=== PATIENT | female | born 1970 | race Caucasian/White ===

== ENCOUNTER 2022-10-04 13:23 | Inpatient (IN) | payer OTHER, BC ==
[2022-10-04 14:39] VITALS: BMI 27.9
[2022-10-04] MEDS ORDERED: NALOXONE HCL 0.4 MG/ML VIAL IM PRN (15:36)
[2022-10-04] MEDS ORDERED: MAG HYDROX/AL HYDROX/SIMETH 30 ML UNIT-DOSE CUP PO PRN (15:36)
[2022-10-04] MEDS ORDERED: POLYETHYLENE GLYCOL (HEALTHYLAX) 3350 17 GM PACKET PO PRN (15:36)
[2022-10-04] MEDS ORDERED: P-EPHED 60MG/TRIPROLIDI 2.5MG TABLET PO PRN (15:36)
[2022-10-04] MEDS ORDERED: DICYCLOMINE HCL 10 MG CAPSULE PO PRN (15:36)
[2022-10-04] MEDS ORDERED: ACETAMINOPHEN 325 MG TABLET (FP) PO PRN ×2 (15:36)
[2022-10-04] MEDS ORDERED: LOPERAMIDE HCL 2 MG CAPSULE PO PRN (15:36)
[2022-10-04] MEDS ORDERED: MAGNESIUM HYDROX 2400MG/30ML ORAL SUSPENSION 30 ML CUP PO PRN (15:36)
[2022-10-04] MEDS ORDERED: NALOXONE HCL (KLOXXADO) 8 MG SPRAY NS PRN (15:36)
[2022-10-04] MEDS ORDERED: guaiFENesin 200 MG/10 ML 10 ML UNIT-DOSE CUPS PO PRN (15:36)
[2022-10-04] MEDS ORDERED: BENZOCAINE/MENTHOL (CHLORASEPTIC ) LOZENGE MM PRN (15:36)
[2022-10-04] MEDS ORDERED: methaDONE HCL 10 MG TABLET (FOR DETOX USE ONLY) PO ONE (15:38)
[2022-10-04] MEDS ORDERED: methaDONE HCL 10 MG TABLET (FOR DETOX USE ONLY) ONE (15:49)
[2022-10-04] MEDS ORDERED: diazePAM 5 MG TABLET ONE (16:22)
[2022-10-04] MEDS ORDERED: cloNIDine HCL 0.1 MG TABLET ONE (16:22)
[2022-10-04] MEDS: cloNIDine HCL 0.1 MG TABLET PO PRN (16:23)
[2022-10-04] MEDS: diazePAM 5 MG TABLET PO SCH ×2 (16:29→22:17)
[2022-10-04] MEDS ORDERED: MELATONIN 5 MG TABLETS PO SCH (22:00)
[2022-10-04] MEDS: THIAMINE HCL 100 MG TABLET (FP) PO SCH (22:17)
[2022-10-04] MEDS: METHOCARBAMOL 500 MG TABLET PO PRN (22:17)
[2022-10-05] MEDS: diazePAM 5 MG TABLET PO SCH ×4 (05:49→22:34)
[2022-10-05] MEDS: METHOCARBAMOL 500 MG TABLET PO PRN ×2 (10:18→17:27)
[2022-10-05] MEDS: cloNIDine HCL 0.1 MG TABLET PO PRN (10:18)
[2022-10-05] MEDS: PRENATAL VITAMINS W/ FOLIC ACID TABLET (FP) PO SCH (10:20)
[2022-10-05] MEDS: diazePAM 5 MG TABLET PO PRN (15:00)
[2022-10-05 15:04] LABS: HEMATOCRIT 37.8 % (32.4-45.2); HEMOGLOBIN 11.6 GM/dL (10.7-15.3); MCH 23.5 pg (25.7-33.7); MCHC 30.7 g/dl (32.0-36.0); MEAN CELL VOLUME 76.8 fl (80-96); MEAN PLT VOLUME 8.4 fl (7.5-11.1); PLATELET COUNT 367 10^3/uL (134-434); RBC 4.92 M/mm3 (3.60-5.2); RDW 18.6 % (11.6-15.6)
[2022-10-05 15:05] LABS: ALBUMIN 3.8 g/dl (3.4-5.0); BLOOD UREA NITROGEN 15.7 mg/dL (7-18); CALCIUM 9.8 mg/dL (8.5-10.1)
[2022-10-05 15:09] LABS: CREATININE 0.7 mg/dL (0.55-1.3)
[2022-10-05 15:10] LABS: BILIRUBIN,TOTAL 0.6 mg/dL (0.2-1); TOT PROT 7.5 g/dl (6.4-8.2)
[2022-10-05] MEDS: hydrOXYzine PAMOATE 25 MG CAPSULE (FP) PO PRN (17:27)
[2022-10-05] MEDS: THIAMINE HCL 100 MG TABLET (FP) PO SCH (22:32)
[2022-10-05] MEDS: SUVOREXANT 10 MG TABLET PO PRN (22:36)
[2022-10-06] MEDS: diazePAM 5 MG TABLET PO PRN ×3 (02:00→17:02)
[2022-10-06] MEDS: diazePAM 5 MG TABLET PO SCH ×3 (05:14→22:10)
[2022-10-06] MEDS: hydrOXYzine PAMOATE 25 MG CAPSULE (FP) PO PRN ×2 (05:15→13:49)
[2022-10-06] MEDS: METHOCARBAMOL 500 MG TABLET PO PRN ×3 (05:15→22:10)
[2022-10-06] MEDS ORDERED: methaDONE HCL 10 MG TABLET (FOR DETOX USE ONLY) PO ONE (10:00)
[2022-10-06] MEDS: PRENATAL VITAMINS W/ FOLIC ACID TABLET (FP) PO SCH (10:04)
[2022-10-06] MEDS: cloNIDine HCL 0.1 MG TABLET PO PRN (13:49)
[2022-10-06] MEDS: THIAMINE HCL 100 MG TABLET (FP) PO SCH (22:10)
[2022-10-06] MEDS: SUVOREXANT 10 MG TABLET PO PRN (22:10)
[2022-10-07] MEDS: diazePAM 5 MG TABLET PO PRN ×3 (00:49→13:00)
[2022-10-07] MEDS: diazePAM 5 MG TABLET PO SCH ×2 (05:30→17:01)
[2022-10-07] MEDS: METHOCARBAMOL 500 MG TABLET PO PRN ×2 (08:46→17:00)
[2022-10-07] MEDS: PRENATAL VITAMINS W/ FOLIC ACID TABLET (FP) PO SCH (09:43)
[2022-10-07] MEDS: hydrOXYzine PAMOATE 25 MG CAPSULE (FP) PO PRN (20:45)
[2022-10-07] MEDS: traZODone HCL 100 MG TABLET (FP) PO SCH (22:13)
[2022-10-07] MEDS: THIAMINE HCL 100 MG TABLET (FP) PO SCH (22:13)
[2022-10-08] MEDS: METHOCARBAMOL 500 MG TABLET PO PRN ×3 (03:50→23:36)
[2022-10-08] MEDS ORDERED: diazePAM 5 MG TABLET PO ONE ×2 (06:00→14:38)
[2022-10-08] MEDS: hydrOXYzine PAMOATE 25 MG CAPSULE (FP) PO PRN ×3 (07:30→22:08)
[2022-10-08] MEDS ORDERED: methaDONE HCL 10 MG TABLET (FOR DETOX USE ONLY) PO ONE (10:00)
[2022-10-08] MEDS: PRENATAL VITAMINS W/ FOLIC ACID TABLET (FP) PO SCH (10:04)
[2022-10-08] MEDS: THIAMINE HCL 100 MG TABLET (FP) PO SCH (22:08)
[2022-10-08] MEDS: traZODone HCL 100 MG TABLET (FP) PO SCH (22:08)
[2022-10-09] MEDS: ONDANSETRON *ODT* 4 MG TABLET SL PRN ×2 (07:37→17:28)
[2022-10-09] MEDS: TRIMETHOBENZAMIDE HCL 200MG/2ML INJ IM PRN ×2 (09:14→22:32)
[2022-10-09] MEDS: hydrOXYzine PAMOATE 25 MG CAPSULE (FP) PO PRN ×2 (10:31→17:28)
[2022-10-09] MEDS: PRENATAL VITAMINS W/ FOLIC ACID TABLET (FP) PO SCH (10:31)
[2022-10-09] MEDS: METHOCARBAMOL 500 MG TABLET PO PRN ×2 (10:31→17:29)
[2022-10-09] MEDS: traZODone HCL 100 MG TABLET (FP) PO SCH (22:31)
[2022-10-09] MEDS: THIAMINE HCL 100 MG TABLET (FP) PO SCH (22:31)
[2022-10-10] MEDS: ONDANSETRON *ODT* 4 MG TABLET SL PRN (06:11)
[2022-10-10] MEDS: TRIMETHOBENZAMIDE HCL 200MG/2ML INJ IM PRN (08:47)
[2022-10-10 09:48] VITALS: RESP 18
[2022-10-10] MEDS: PRENATAL VITAMINS W/ FOLIC ACID TABLET (FP) PO SCH (10:13)
[2022-10-10 17:21] VITALS: BP 125/64; PULSE 52; TEMP 97.1
== END 2022-10-10 16:40 | disposition other institution (70) | DRG 897 ==
LOC: YASAS 13:23 → Y6N 16:16
PROVIDERS: ADMIT Allergy & Immunology; ATTEND Surgery
PROC: HZ2ZZZZ Detoxification Services for Substance Abuse Treatment (ICD-10-PCS; principal; 2022-10-04)
DX: F11.23 Opioid dependence with withdrawal (principal); F13.20 Sedative, hypnotic or anxiolytic dependence, uncomplicated; F19.280 Other psychoactive substance dependence with psychoactive substance-induced anxiety disorder; F19.282 Other psychoactive substance dependence with psychoactive substance-induced sleep disorder; F12.20 Cannabis dependence, uncomplicated; F43.10 Post-traumatic stress disorder, unspecified; G54.6 Phantom limb syndrome with pain; Z62.810 Personal history of physical and sexual abuse in childhood; Z89.212 Acquired absence of left upper limb below elbow; Z89.021 Acquired absence of right finger(s); Z91.51 Personal history of suicidal behavior; Z86.2 Personal history of diseases of the blood and blood-forming organs and certain disorders involving the immune mechanism; Z86.19 Personal history of other infectious and parasitic diseases; Z88.8 Allergy status to other drugs, medicaments and biological substances
CPT/HCPCS: 36415; 80053; 81025; 82962; 85027; 86780; C9803-CS; Q0162; U0003; U0005

== ENCOUNTER 2022-10-04 17:33 | Emergency (ER) | payer OTHER, BC ==
[2022-10-04 18:04] VITALS: BP 95/51; PULSE 81; RESP 20; TEMP 97.6; BMI 29.2
== END 2022-10-04 19:45 | disposition home or self-care (01) ==
LOC: JER 17:33
DX: M79.89 Other specified soft tissue disorders (principal)
CPT/HCPCS: 93970-TC; 99283-25

== ENCOUNTER 2022-10-25 12:52 | Inpatient (IN) | payer OTHER ==
[2022-10-25] MEDS ORDERED: MAGNESIUM HYDROX 2400MG/30ML ORAL SUSPENSION 30 ML CUP PO PRN (15:02)
[2022-10-25] MEDS ORDERED: NICOTINE POLACRILEX 2 MG GUM BUC PRN (15:02)
[2022-10-25] MEDS ORDERED: ACETAMINOPHEN 325 MG TABLET (FP) PO PRN ×2 (15:02)
[2022-10-25] MEDS ORDERED: BISMUTH SUBSALICYLATE 524 MG/30 ML PO PRN (15:02)
[2022-10-25] MEDS ORDERED: MAG HYDROX/AL HYDROX/SIMETH 30 ML UNIT-DOSE CUP PO PRN (15:02)
[2022-10-25] MEDS ORDERED: NICOTINE 10 MG CARTRIDGE (INHALER) IH PRN (15:02)
[2022-10-25] MEDS ORDERED: DICYCLOMINE HCL 10 MG CAPSULE PO PRN (15:02)
[2022-10-25] MEDS ORDERED: diazePAM 5 MG TABLET PO PRN (15:02)
[2022-10-25] MEDS ORDERED: IBUPROFEN 600 MG TABLET (FP) PO PRN (15:02)
[2022-10-25] MEDS ORDERED: hydrOXYzine PAMOATE 25 MG CAPSULE (FP) PO PRN (15:02)
[2022-10-25] MEDS ORDERED: ONDANSETRON *ODT* 4 MG TABLET SL PRN (15:02)
[2022-10-25] MEDS ORDERED: methaDONE HCL 10 MG TABLET (FOR DETOX USE ONLY) PO ONE (15:02)
[2022-10-25] MEDS ORDERED: LOPERAMIDE HCL 2 MG CAPSULE PO PRN (15:02)
[2022-10-25] MEDS ORDERED: NALOXONE HCL (KLOXXADO) 8 MG SPRAY NS PRN (15:02)
[2022-10-25] MEDS ORDERED: IBUPROFEN 400 MG TABLET (FP) PO PRN (15:02)
[2022-10-25] MEDS ORDERED: POLYETHYLENE GLYCOL (HEALTHYLAX) 3350 17 GM PACKET PO PRN (15:02)
[2022-10-25] MEDS ORDERED: METHOCARBAMOL 500 MG TABLET PO PRN (15:02)
[2022-10-25] MEDS ORDERED: BENZOCAINE/MENTHOL (CHLORASEPTIC ) LOZENGE MM PRN (15:02)
[2022-10-25] MEDS ORDERED: cloNIDine HCL 0.1 MG TABLET PO PRN (15:02)
[2022-10-25] MEDS ORDERED: methaDONE HCL 10 MG TABLET (FOR DETOX USE ONLY) ONE (17:00)
[2022-10-25] MEDS ORDERED: diazePAM 5 MG TABLET ONE (17:00)
[2022-10-25] MEDS: diazePAM 5 MG TABLET PO SCH ×2 (17:19→22:06)
[2022-10-25 17:30] LABS: HEMATOCRIT 40.2 % (32.4-45.2); HEMOGLOBIN 12.4 GM/dL (10.7-15.3); MCHC 30.7 g/dl (32.0-36.0); MEAN CELL VOLUME 78.1 fl (80-96); MEAN PLT VOLUME 8.1 fl (7.5-11.1); PLATELET COUNT 256 10^3/uL (134-434); RBC 5.15 M/mm3 (3.60-5.2); RDW 20.2 % (11.6-15.6); WHITE BLOOD COUNT 5.8 K/mm3 (4.0-10.0)
[2022-10-25 17:39] LABS: ALBUMIN 3.6 g/dl (3.4-5.0); BLOOD UREA NITROGEN 8.6 mg/dL (7-18); CALCIUM 9.3 mg/dL (8.5-10.1)
[2022-10-25 17:43] LABS: CREATININE 0.8 mg/dL (0.55-1.3)
[2022-10-25 17:44] LABS: BILIRUBIN,TOTAL 0.4 mg/dL (0.2-1); TOT PROT 7.6 g/dl (6.4-8.2)
[2022-10-25] MEDS ORDERED: THIAMINE HCL 100 MG TABLET (FP) PO SCH (22:00)
[2022-10-25] MEDS ORDERED: MELATONIN 5 MG TABLETS PO SCH (22:00)
[2022-10-26] MEDS: diazePAM 5 MG TABLET PO SCH ×2 (05:30→10:11)
[2022-10-26] MEDS ORDERED: PRENATAL VITAMINS W/ FOLIC ACID TABLET (FP) PO SCH (10:00)
[2022-10-26 13:08] VITALS: BP 98/67; PULSE 99; RESP 18; TEMP 98.1
[2022-10-26] MEDS ORDERED: traZODone HCL 100 MG TABLET (FP) PO SCH (22:00)
[2022-10-27] MEDS ORDERED: diazePAM 5 MG TABLET PO SCH (06:00)
[2022-10-27] MEDS ORDERED: methaDONE HCL 10 MG TABLET (FOR DETOX USE ONLY) PO ONE (10:00)
[2022-10-28] MEDS ORDERED: diazePAM 5 MG TABLET PO SCH (06:00)
[2022-10-29] MEDS ORDERED: diazePAM 5 MG TABLET PO ONE (06:00)
[2022-10-29] MEDS ORDERED: methaDONE HCL 10 MG TABLET (FOR DETOX USE ONLY) PO ONE (10:00)
== END 2022-10-26 15:10 | disposition left against medical advice (07) | DRG 894 ==
LOC: YASAS 12:52 → Y6N 15:41
PROVIDERS: ADMIT Allergy & Immunology; ATTEND Surgery
PROC: HZ2ZZZZ Detoxification Services for Substance Abuse Treatment (ICD-10-PCS; principal; 2022-10-25)
DX: F11.23 Opioid dependence with withdrawal (principal); F19.280 Other psychoactive substance dependence with psychoactive substance-induced anxiety disorder; F19.282 Other psychoactive substance dependence with psychoactive substance-induced sleep disorder; F13.230 Sedative, hypnotic or anxiolytic dependence with withdrawal, uncomplicated; F32.9 Major depressive disorder, single episode, unspecified; F43.10 Post-traumatic stress disorder, unspecified; G54.7 Phantom limb syndrome without pain; Z87.828 Personal history of other (healed) physical injury and trauma; Z89.212 Acquired absence of left upper limb below elbow; Z89.021 Acquired absence of right finger(s); Z91.51 Personal history of suicidal behavior; Z91.410 Personal history of adult physical and sexual abuse; Z86.2 Personal history of diseases of the blood and blood-forming organs and certain disorders involving the immune mechanism; Z88.8 Allergy status to other drugs, medicaments and biological substances
CPT/HCPCS: 36415; 80053; 85027; 86780; C9803-CS; U0003; U0005

== ENCOUNTER 2023-06-13 18:01 | Inpatient (IN) | payer OTHER ==
[2023-06-13 20:01] VITALS: BMI 26.6
[2023-06-13] MEDS ORDERED: NALOXONE HCL (KLOXXADO) 8 MG SPRAY NS PRN (21:28)
[2023-06-13] MEDS ORDERED: guaiFENesin 600 MG TABLET.ER (FP) PO PRN (21:28)
[2023-06-13] MEDS ORDERED: BENZONATATE 200 MG CAPSULE PO PRN (21:28)
[2023-06-13] MEDS ORDERED: MAGNESIUM HYDROX 2400MG/30ML ORAL SUSPENSION 30 ML CUP PO PRN (21:28)
[2023-06-13] MEDS ORDERED: MAG HYDROX/AL HYDROX/SIMETH 30 ML UNIT-DOSE CUP PO PRN (21:28)
[2023-06-13] MEDS ORDERED: BENZOCAINE/MENTHOL (CHLORASEPTIC ) LOZENGE MM PRN (21:28)
[2023-06-13] MEDS ORDERED: ACETAMINOPHEN 325 MG TABLET (FP) PO PRN (21:28)
[2023-06-13] MEDS ORDERED: POLYETHYLENE GLYCOL (HEALTHYLAX) 3350 17 GM PACKET PO PRN (21:28)
[2023-06-13] MEDS ORDERED: BISMUTH SUBSALICYLATE 524 MG/30 ML PO PRN (21:28)
[2023-06-13] MEDS ORDERED: NALOXONE HCL 0.4 MG/ML VIAL IM PRN (21:28)
[2023-06-13] MEDS ORDERED: IBUPROFEN 400 MG TABLET (FP) PO PRN (21:28)
[2023-06-13] MEDS ORDERED: LOPERAMIDE HCL 2 MG CAPSULE PO PRN (21:28)
[2023-06-13] MEDS ORDERED: IBUPROFEN 600 MG TABLET (FP) PO PRN (21:28)
[2023-06-13] MEDS ORDERED: methaDONE HCL 10 MG TABLET (FOR DETOX USE ONLY) PO ONE (21:33)
[2023-06-14] MEDS: THIAMINE HCL 100 MG TABLET (FP) PO SCH ×2 (00:44→22:13)
[2023-06-14] MEDS: MELATONIN 5 MG TABLETS PO SCH ×2 (00:44→22:13)
[2023-06-14] MEDS: cloNIDine HCL 0.1 MG TABLET PO PRN ×2 (00:44→16:16)
[2023-06-14] MEDS: METHOCARBAMOL 500 MG TABLET PO PRN ×3 (00:44→22:13)
[2023-06-14] MEDS ORDERED: methaDONE HCL 40 MG DISPERSABLE TABLET PO ONE (00:52)
[2023-06-14] MEDS: diazePAM 5 MG TABLET PO SCH ×5 (01:04→23:15)
[2023-06-14] MEDS: diazePAM 5 MG TABLET PO PRN ×3 (01:20→19:50)
[2023-06-14] MEDS ORDERED: methaDONE HCL 10 MG TABLET (FOR DETOX USE ONLY) PO ONE (01:30)
[2023-06-14] MEDS: PRENATAL VITAMINS W/ FOLIC ACID TABLET (FP) PO SCH (10:06)
[2023-06-14] MEDS: ACETAMINOPHEN 325 MG TABLET (FP) PO PRN (15:41)
[2023-06-14] MEDS: traZODone HCL 50 MG TABLET (FP) PO SCH (22:13)
[2023-06-15] MEDS: METHOCARBAMOL 500 MG TABLET PO PRN (03:33)
[2023-06-15] MEDS: diazePAM 5 MG TABLET PO SCH ×3 (05:11→21:28)
[2023-06-15] MEDS: cloNIDine HCL 0.1 MG TABLET PO PRN ×2 (05:19→20:06)
[2023-06-15] MEDS: PRENATAL VITAMINS W/ FOLIC ACID TABLET (FP) PO SCH (09:53)
[2023-06-15] MEDS ORDERED: methaDONE HCL 10 MG TABLET (FOR DETOX USE ONLY) PO ONE (10:00)
[2023-06-15] MEDS: diazePAM 5 MG TABLET PO PRN (17:16)
[2023-06-15] MEDS: traZODone HCL 50 MG TABLET (FP) PO SCH (21:27)
[2023-06-15] MEDS: MELATONIN 5 MG TABLETS PO SCH (21:27)
[2023-06-15] MEDS: THIAMINE HCL 100 MG TABLET (FP) PO SCH (21:39)
[2023-06-16] MEDS: diazePAM 5 MG TABLET PO PRN ×2 (01:42→11:42)
[2023-06-16] MEDS: diazePAM 5 MG TABLET PO SCH ×2 (05:20→17:35)
[2023-06-16] MEDS: PRENATAL VITAMINS W/ FOLIC ACID TABLET (FP) PO SCH (10:08)
[2023-06-16] MEDS: METHOCARBAMOL 500 MG TABLET PO PRN (14:04)
[2023-06-16 15:20] LABS: POTASSIUM 4.2 mmol/L (3.5-5.1)
[2023-06-16 15:23] LABS: CALCIUM 9.1 mg/dL (8.5-10.1); HEMOGLOBIN 12.5 GM/dL (10.7-15.3); MCH 25.8 pg (25.7-33.7); MCHC 32.9 g/dl (32.0-36.0); MEAN CELL VOLUME 78.6 fl (80-96); MEAN PLT VOLUME 9.2 fl (7.5-11.1); PLATELET COUNT 169 10^3/uL (134-434); RBC 4.84 M/mm3 (3.60-5.2); RDW 16.5 % (11.6-15.6); WHITE BLOOD COUNT 5.4 K/mm3 (4.0-10.0)
[2023-06-16 15:27] LABS: CREATININE 0.7 mg/dL (0.55-1.3)
[2023-06-16 15:28] LABS: BILIRUBIN,TOTAL 0.6 mg/dL (0.2-1); TOT PROT 7.7 g/dl (6.4-8.2)
[2023-06-16] MEDS: THIAMINE HCL 100 MG TABLET (FP) PO SCH (22:09)
[2023-06-16] MEDS: traZODone HCL 50 MG TABLET (FP) PO SCH (22:09)
[2023-06-16] MEDS: MELATONIN 5 MG TABLETS PO SCH (22:10)
[2023-06-17] MEDS: METHOCARBAMOL 500 MG TABLET PO PRN (04:38)
[2023-06-17] MEDS ORDERED: diazePAM 5 MG TABLET PO ONE (06:00)
[2023-06-17] MEDS: PRENATAL VITAMINS W/ FOLIC ACID TABLET (FP) PO SCH (09:57)
[2023-06-17] MEDS: ACETAMINOPHEN 325 MG TABLET (FP) PO PRN (09:59)
[2023-06-17] MEDS ORDERED: methaDONE HCL 10 MG TABLET (FOR DETOX USE ONLY) PO ONE (10:00)
[2023-06-17] MEDS: ONDANSETRON *ODT* 4 MG TABLET SL PRN (13:11)
[2023-06-17] MEDS: MELATONIN 5 MG TABLETS PO SCH (22:13)
[2023-06-17] MEDS: traZODone HCL 50 MG TABLET (FP) PO SCH (22:13)
[2023-06-17] MEDS: THIAMINE HCL 100 MG TABLET (FP) PO SCH (22:13)
[2023-06-18] MEDS: ONDANSETRON *ODT* 4 MG TABLET SL PRN (05:36)
[2023-06-18 06:44] VITALS: BP 124/67; PULSE 71; RESP 18; TEMP 98.2
[2023-06-18] MEDS: PRENATAL VITAMINS W/ FOLIC ACID TABLET (FP) PO SCH (10:36)
== END 2023-06-18 09:52 | disposition home or self-care (01) | DRG 897 ==
LOC: YASAS 18:01 → Y6N 23:41
PROVIDERS: ADMIT Allergy & Immunology; ATTEND Allergy & Immunology
PROC: HZ2ZZZZ Detoxification Services for Substance Abuse Treatment (ICD-10-PCS; principal; 2023-06-13)
DX: F11.23 Opioid dependence with withdrawal (principal); F19.280 Other psychoactive substance dependence with psychoactive substance-induced anxiety disorder; F19.282 Other psychoactive substance dependence with psychoactive substance-induced sleep disorder; F33.9 Major depressive disorder, recurrent, unspecified; F13.230 Sedative, hypnotic or anxiolytic dependence with withdrawal, uncomplicated; G54.7 Phantom limb syndrome without pain; B18.2 Chronic viral hepatitis C; Z89.212 Acquired absence of left upper limb below elbow; Z89.021 Acquired absence of right finger(s); Z88.8 Allergy status to other drugs, medicaments and biological substances
CPT/HCPCS: 36415; 80053; 81025; 85027; 86780; 87635; 93005; 93010; Q0162